=== PATIENT | male | born 1940 | race Caucasian/White ===

== ENCOUNTER → 2016-09-14 | Outpatient (CLI) | payer MEDICARE, OTHER, MEDICAID ==
[~2016-09-14] MED LIST: /WARF5TA PO; ALBU83IN INH; CARV25TA PO; COLACE PO; CORE25TA OR; DEPA500T PO; DIGO0.257 PO; FAMO40TA2 PO; FURO80TA2 PO; GEMF600T PO; GLIP5TAB2 PO; GLUC1000 PO; HCTZ PO; LIPI20TA PO; LISI10TA4 PO; NITR0.4S SL; PAXI40TA PO; SPIRONOLACTONE PO; TACLOIN4 TOP; VICO5TAB PO; VITAMIN D50000 UNT PO
--- NOTE | 2016-09-14 12:37 | REP ---
CHEST, TWO VIEWS: HISTORY: COPD. COMPARISON: 08/31/2011 An increase in interstitial markings is present in the mid and lower lungs. The cardiac silhouette is enlarged. The pulmonary vasculature is prominent. Degenerative change is present in the thoracic spine. A cardiac pacemaker is present. IMPRESSION: The above findings are consistent with bilateral interstitial infiltrates or edema. Signed by Bo Castro MD 09/14/2016 12:47 P
[2016-09-14 15:25] LABS: MEAN CORPUSCULAR HEMOGLOBIN 29.9 pg (27.0-33.0); MEAN CORPUSCULAR HGB CONC 30.9 g/dl (32.0-36.5); MEAN CORPUSCULAR VOLUME 96.8 fl (80.0-96.0); RED CELL DISTRIBUTION WIDTH 18.6 % (11.5-14.5); WHITE BLOOD COUNT 8.5 K/mm3 (4.0-10.0)
[2016-09-14 15:28] LABS: INR 1.65
[2016-09-14 15:56] LABS: CALCIUM LEVEL 8.5 MG/DL (8.8-10.2); CREATININE FOR GFR 1.5 MG/DL (0.70-1.30); GLOMERULAR FILTRATION RATE 48.8 (>42); POTASSIUM SERUM 4.4 MEQ/L (3.5-5.1)
== END ==
LOC: M WUC 11:42
PROVIDERS: ATTEND Internal Medicine Cardiovascular Disease
DX: J44.1 Chronic obstructive pulmonary disease with (acute) exacerbation (principal); I50.9 Heart failure, unspecified; I10 Essential (primary) hypertension; I25.10 Atherosclerotic heart disease of native coronary artery without angina pectoris

== ENCOUNTER 2016-10-15 09:47 | Emergency (ER) | payer MEDICARE, OTHER, MEDICAID ==
[~2016-10-15] VITALS: Ht 177.8 cm; Wt 108.4 kg
[2016-10-15] MEDS ORDERED: SPIR25TA2 PO (10:03)
[2016-10-15] MEDS ORDERED: TORS20TA2 PO (10:03)
[2016-10-15] MEDS ORDERED: IRON50TA PO (10:03)
[2016-10-15] MEDS ORDERED: ENTR1TAB7 PO (10:03)
[2016-10-15] MEDS ORDERED: METF500T PO (10:03)
[2016-10-15] MEDS ORDERED: NOVO70VL SC (10:03)
[2016-10-15] MEDS ORDERED: VITA500C24 PO (10:03)
[2016-10-15] MEDS ORDERED: NORCO, ANEXSIA 5/325MG TABLET (HYDROcodone/ACETAMINOPHEN) PO ONE (10:30)
[2016-10-15 10:47] LABS: ADD MORPHOLOGY? YES; BASO % 0.3 % (0.0-1.0); EOS # 0.6 K/mm3 (0.0-0.50); EOS % 5.1 % (0.0-3.0); LARGE UNSTAINED CELL # 0.1 K/mm3 (0.0-0.4); LARGE UNSTAINED CELL % 1.1 % (0.0-4.0); LYMPH # 1.7 K/mm3 (1.5-4.5); LYMPH % 13.4 % (24.0-44.0); MEAN CORPUSCULAR HEMOGLOBIN 29.7 pg (27.0-33.0); MEAN CORPUSCULAR HGB CONC 29.5 g/dl (32.0-36.5); MEAN CORPUSCULAR VOLUME 100.8 fl (80.0-96.0); MONO % 8.4 % (0.0-5.0); NEUTROPHILS # 8.6 K/mm3 (1.8-7.7); NEUTROPHILS % 71.6 % (36.0-66.0); PLATELET COUNT, AUTOMATED 257 k/mm3 (150-450); RED CELL DISTRIBUTION WIDTH 22.6 % (11.5-14.5)
[2016-10-15 10:55] LABS: INR 2.1
[2016-10-15 11:12] LABS: ANION GAP 11 MEQ/L (8-16); BLOOD UREA NITROGEN 29 MG/DL (7-18); CALCIUM LEVEL 8.3 MG/DL (8.8-10.2); CARBON DIOXIDE LEVEL 25 MEQ/L (21-32); CHLORIDE LEVEL 106 MEQ/L (98-107); CREATININE FOR GFR 1.19 MG/DL (0.70-1.30); GLOMERULAR FILTRATION RATE > 60.0 (>42); GLUCOSE, FASTING 138 MG/DL (83-110); POTASSIUM SERUM 4.5 MEQ/L (3.5-5.1); SODIUM LEVEL 142 MEQ/L (136-145)
[2016-10-15 11:29] LABS: HYPOCHROMASIA 3+
[2016-10-15 11:30] LABS: ANISOCYTOSIS 3+
--- NOTE | 2016-10-15 11:30 | REP ---
Clinical: Pain centered at the first toe. Technique: AP, lateral, bilateral oblique views of the left foot. Findings: Age-related osteopenia and arthritic degenerative changes are appreciated including joint space narrowing and subtle spurring at the interphalangeal joints. Moderate soft tissue swelling surrounding the first metatarsophalangeal joint and subtle subchondral areas of osteopenia suggest the possibility of inflammatory arthritides. No acute fracture dislocation. Impression: 1. Osteoarthritic degenerative changes. 2. Swelling and subtle changes involving the first metatarsophalangeal joint suggesting associated inflammatory arthritic disease. Signed by Alfredo Kong MD 10/15/2016 11:21 A
[2016-10-15 11:34] LABS: POIKILOCYTOSIS 1+
[2016-10-15] MEDS ORDERED: CLEO300C2 PO (11:40)
[2016-10-15] MEDS ORDERED: NORCOTAB PO (11:41)
[2016-10-15 11:47] VITALS: BP 109/57
--- NOTE | 2016-10-18 12:36 | REP ---
Left shoulder three views: There is no fracture or dislocation. Glenohumeral osteoarthritis. There is minimal widening of the acromioclavicular joint, degenerative versus post-traumatic). There are no calcifications or foreign bodies. The pacemaker is superimposed. Emergency stat interpretation was given by my colleague, Dr. Castro, upon completion of the study on 10/15/2016, 11:05 a.m. Signed by Elvin Mcguire MD 10/18/2016 12:28 P
== END 2016-10-15 11:59 | disposition home or self-care (01) ==
LOC: M ED 11:58
DX: S40.012A Contusion of left shoulder, initial encounter (principal); W01.0XXA Fall on same level from slipping, tripping and stumbling without subsequent striking against object, initial encounter; Y92.009 Unspecified place in unspecified non-institutional (private) residence as the place of occurrence of the external cause; Y93.89 Activity, other specified; Y99.8 Other external cause status; M10.9 Gout, unspecified; E11.9 Type 2 diabetes mellitus without complications; I10 Essential (primary) hypertension; I25.10 Atherosclerotic heart disease of native coronary artery without angina pectoris; I50.9 Heart failure, unspecified; E78.9 Disorder of lipoprotein metabolism, unspecified; I48.91 Unspecified atrial fibrillation; F32.9 Major depressive disorder, single episode, unspecified; Z95.0 Presence of cardiac pacemaker; Z95.1 Presence of aortocoronary bypass graft; Z86.73 Personal history of transient ischemic attack (TIA), and cerebral infarction without residual deficits; Z79.899 Other long term (current) drug therapy; Z79.01 Long term (current) use of anticoagulants; Z79.84 Long term (current) use of oral hypoglycemic drugs; Z79.4 Long term (current) use of insulin

== ENCOUNTER 2016-10-25 10:54 | Inpatient (IN) | payer MEDICARE, OTHER, MEDICAID ==
[~2016-10-25] VITALS: Ht 177.8 cm; Wt 110.7 kg
[~2016-10-25 10:54] MED LIST changes: +CLEO300C2 PO; +ENTR1TAB7 PO; +IRON50TA PO; +METF500T PO; +NORCOTAB PO; +NOVO70VL SC; +SPIR25TA2 PO; +TORS20TA2 PO; +VITA500C24 PO
[2016-10-25 12:00] LABS: BASO % 0.8 % (0.0-1.0); EOS # 0.5 K/mm3 (0.0-0.50); EOS % 7.6 % (0.0-3.0); LARGE UNSTAINED CELL # 0.1 K/mm3 (0.0-0.4); LARGE UNSTAINED CELL % 1.3 % (0.0-4.0); LYMPH # 1.2 K/mm3 (1.5-4.5); LYMPH % 18.9 % (24.0-44.0); MEAN CORPUSCULAR HEMOGLOBIN 28.5 pg (27.0-33.0); MEAN CORPUSCULAR VOLUME 98.2 fl (80.0-96.0); MONO # 0.5 K/mm3 (0.0-0.8); MONO % 7.7 % (0.0-5.0); NEUTROPHILS # 3.9 K/mm3 (1.8-7.7); NEUTROPHILS % 63.7 % (36.0-66.0); PLATELET COUNT, AUTOMATED 295 k/mm3 (150-450); RED CELL DISTRIBUTION WIDTH 19.1 % (11.5-14.5); WHITE BLOOD COUNT 6.2 K/mm3 (4.0-10.0)
[2016-10-25 12:04] LABS: INR 2.62
[2016-10-25 12:26] LABS: ANION GAP 9 MEQ/L (8-16); BLOOD UREA NITROGEN 24 MG/DL (7-18); CALCIUM LEVEL 8.9 MG/DL (8.8-10.2); CARBON DIOXIDE LEVEL 29 MEQ/L (21-32); CHLORIDE LEVEL 104 MEQ/L (98-107); GLOMERULAR FILTRATION RATE > 60.0 (>42); GLUCOSE, FASTING 110 MG/DL (83-110); SODIUM LEVEL 142 MEQ/L (136-145)
--- NOTE | 2016-10-25 12:45 | REP ---
CHEST, TWO VIEWS: Two views of the chest are performed and compared to the prior study of 09/14/2016. There is no change since the prior exam. There is mild cardiomegaly. Bibasilar interstitial infiltrates are unchanged. There is some calcification of the thoracic aorta. Mediastinal silhouette is unchanged. Multiple sternal wires are present. Left pacemaker is again noted. There are degenerative changes of the spine. IMPRESSION: No change in cardiomegaly and bibasilar interstitial infiltrates. Signed by Elvin Milton MD 10/25/2016 04:43 P
--- NOTE | 2016-10-25 14:48 | ECGEPIP ---
Stationary ECG Study [facility] - ED Test Date: 2016-10-25 Pat Name: LUCIA CORONA Department: Room: - Gender: M Kettleman: teodora : 1940 Requested By: Ana Martinez Order Number: [id number] Reading MD: Grant Garcia Measurements Intervals Ethel Rate: 65 P: -74 RI: 165 QRS: -73 QRSD: 168 T: 107 QT: 491 QTc: 514 Interpretive Statements ELECTRONIC ATRIAL PACEMAKER ELECTRONIC VENTRICULAR PACEMAKER ABNORMAL RHYTHM ECG NO PRIORS 09/02/11 Electronically Signed On 10-25-2016 14:48:19 EDT by Grant Garcia
[2016-10-25] MEDS ORDERED: ACETAMINOPHEN TAB 650MG DOSE (2X325MG) PO PRN (15:00)
[2016-10-25] MEDS ORDERED: ONDANSETRON 4MG/2ML VIAL (J2405) IV PRN (15:00)
[2016-10-25 15:36] LABS: FERRITIN 50 NG/ML (26-388); TOTAL IRON BINDING CAPACITY 395 UG/DL (250-450)
[2016-10-25] MEDS ORDERED: FERR83TA2 PO (15:37)
[2016-10-25] MEDS ORDERED: DIVA500T3 PO (15:37)
[2016-10-25] MEDS ORDERED: CARV6.25 PO (15:37)
[2016-10-25] MEDS ORDERED: TORS20TA2 PO (15:37)
[2016-10-25] MEDS ORDERED: NOVO70VL SC (15:37)
[2016-10-25] MEDS ORDERED: WARF-22 PO (15:37)
[2016-10-25] MEDS ORDERED: PARO40TA2 PO (15:37)
[2016-10-25] MEDS ORDERED: METF-414 PO (15:37)
[2016-10-25] MEDS ORDERED: ENTR1TAB7 PO (15:37)
[2016-10-25] MEDS ORDERED: VITA500T88 PO (15:37)
[2016-10-25] MEDS ORDERED: NITR4TASL SL (15:37)
[2016-10-25] MEDS ORDERED: HYDR-3716 PO (15:37)
[2016-10-25] MEDS ORDERED: LIPI20TA PO (15:37)
[2016-10-25] MEDS ORDERED: WARF-23 PO (15:37)
[2016-10-25] MEDS ORDERED: SPIR25TA2 PO (15:37)
[2016-10-25] MEDS ORDERED: ZYLO300T4 PO (15:38)
[2016-10-25 15:39] LABS: RETIC HEMOGLOBIN CONTENT CHr 29.8 PG (24-36); RETICULOCYTE ABSOLUTE ADVIA212 109 x10(9)/L (17-77)
[2016-10-25 15:39] LABS: REASON FOR REVIEW COMPREHENSIVE REVIEW
[2016-10-25] MEDS ORDERED: GABA-282 PO (15:39)
[2016-10-25] MEDS ORDERED: NEXI40CA PO (15:39)
[2016-10-25] MEDS ORDERED: BENZ100C5 PO (15:39)
[2016-10-25 16:21] LABS: PERCENT SATURATION 29.1 % (19.7-37.4)
[2016-10-25] MEDS ORDERED: NITROGLYCERIN 0.4 MG SUBL TABLET SL PRN (16:30)
[2016-10-25] MEDS ORDERED: GASTROGRAFIN SOLUTION 30ML (Q9963) PO ONE ×2 (16:35→17:05)
[2016-10-25] MEDS: NovoLOG MIX 70/30 PER UNIT SC SCH (17:30)
[2016-10-25] MEDS: SUCRALFATE 1 GM TAB PO SCH ×2 (17:39→21:00)
[2016-10-25 18:00] VITALS: BP 157/74
--- NOTE | 2016-10-25 18:18 | REP ---
Brain CT without contrast: History: History of a fall. Patient on Coumadin. No comparison brain CT. CT findings: Digital lateral job specification writer radiograph demonstrates no abnormality. Bone window settings demonstrate an intact bony calvarium. No skull fracture or significant scalp hematoma is appreciated. There is heavy vascular calcification in the distribution of the distal vertebral and distal carotid arteries bilaterally. On soft tissue window settings, there is diffuse mild to moderate cerebral atrophy. There is no evidence of intracranial hemorrhage. Milton-white differentiation pattern is normal above and below the tentorium. There is no evidence of mass, infarction, extra-axial fluid collection or midline shift. Impression: Diffuse atrophy, vascular calcification. No acute intracranial abnormality. Signed by Mervin Valero MD 10/25/2016 07:37 P
--- NOTE | 2016-10-25 18:37 | REP ---
CT study of the abdomen and pelvis without IV or oral contrast: History: Abdominal distension. Anemia. History of abdominal aortic aneurysm. CT findings: Digital division traffic superintendent radiograph demonstrates pacemaker wires in the heart. Bowel gas pattern normal. Extensive vascular calcification is seen. There are clips in the left inguinal soft tissues. Axial CT images demonstrate evidence of COPD with peripheral pattern of the bilateral lower lobe interstitial fibrosis and honeycombing. No adrenal lesion is seen on either side. The liver and the spleen are normal in size and homogeneous in texture. Pancreas is unremarkable. There is some gravel like calcific material in the dependent portion of the neck of the gallbladder. Extensive vascular calcification is observed. No hydronephrosis is seen. There is an infrarenal abdominal aortic aneurysm measuring 3.4 cm in greatest anteroposterior dimension. No retroperitoneal mass or adenopathy is seen. Small and large intestinal bowel loops are normal in the upper abdomen. Pelvic images demonstrate a disc shaped metallic object in the right lower quadrant of the abdomen adjacent to or within the tip of the cecum. This is seen on division traffic superintendent image. It measures 2.1 cm in greatest diameter. There is spray artifact emanating from this. A normal short appendix appears to course just caudal to this density. There is an umbilical hernia transmitting a small amount of abdominal fat. No other abdominal wall defect is seen. There are dystrophic calcifications in the prostate. Urinary bladder is unremarkable. Left colonic diverticulosis is seen without CT evidence of diverticulitis. No bony destructive lesion is appreciated. There are degenerative changes in the lumbosacral spine. Impression: 1. Tiny gravel like calculi suspected in the gallbladder neck. 2. Infrarenal 3.4 cm abdominal aortic aneurysm. 3. Metallic density in or adjacent to the tip of the cecum. This may reflect a metallic ingested object. 2.1 cm in greatest diameter. This is not visible on CT images from July 2010.3. A small umbilical hernia transmitting abdominal fat. 4. Vascular calcification. 5. Left colonic diverticulosis. No CT evidence of diverticulitis. Signed by Mervin Valero MD 10/25/2016 07:38 P
--- NOTE | 2016-10-25 18:52 | HPEPDOC ---
General Date of Admission Oct 25, 2016 at 14:47 Primary Care Physician: RONIT HUSTON DO Attending Physician: KAMERON ALEJANDRE MD Chief Complaint The patient is a 75-year-old male admitted with a reason for visit of Symptomatic Anemia. Source: Patient, Family Exam Limitations: No limitations Timing/Duration: Getting worse Severity: Moderate History of Present Illness Mr. Jean presents to the emergency department today because it was recommended by his PCP and Dr. Parikh. Apparently he had a drop in hemoglobin from 12.2 on 09/14/2016 28.4 on 10/15/2016, and he had been feeling significantly more fatigued, and he has fallen a few times in the past few weeks , he had a doctor's visit today where he discussed his lab results, and at that time he was sent in for further evaluation. His hemoglobin in the ED today is 9.1, therefore it appears that his bleeding has stabilized at this time. Other than increased fatigue, he has no additional acute complaints. He does have some sense of abdominal distention which she attributes to bloating and gas , he has had a few pounds of weight loss over the past few week which she attributes to poor oral intake. He has had a few chills as well. He does admit to having a cough, but this is chronic in nature and unchanged. He does take iron supplements, therefore his stools are chronically black and tarry, but specifically he denies seeing any bright red blood in the toilet bowl, on the surface of the stool, or mixed in. As regarding his falls, he states that he has fallen twice in the past week, he did hit his head one of those times. He states that he will feel a pain go up the back of the legs and into his back, and then he will fall. He does not have enough time to be able to sit down. Otherwise, he denies any prodromal symptoms such as lightheadedness. Home Medications Scheduled Allopurinol (Zyloprim) 300 Mg Tab 300 MG PO DAILY (Reported) Ascorbic Acid (Vitamin C) 500 Mg Tab 500 MG PO DAILY (Reported) Atorvastatin Calcium (Lipitor) 20 Mg Tab 20 MG PO QHS (Reported) Benzonatate (Benzonatate) 100 Mg Cap 100 MG PO BID (Reported) Carvedilol (Carvedilol) 6.25 Mg Tab 6.25 MG PO BID (Reported) Divalproex Sodium (Divalproex Sodium Dr) 500 Mg Tab 500 MG PO BID (Reported) Esomeprazole Magnesium Trihydr (Nexium) 40 Mg Cap 40 MG PO DAILY (Reported) Ferrous Sulfate (Ferrous Sulfate) 27 Mg Tab 54 MG PO DAILY (Reported) Gabapentin (Gabapentin) 300 Mg Cap 900 MG PO BID (Reported) Insulin Aspart Protamine/Aspar (Novolog Mix 70/30 (70-30) 100 Unit/ml) 1 Units/ 0.01 Ml Susp 42 UNITS SC BID (Reported) Metformin Hydrochloride (Metformin HCl ER) 500 Mg Tab 1,000 MG PO BID (Reported ) Paroxetine (Paroxetine HCl) 40 Mg Tab 40 MG PO DAILY (Reported) Sacubitril/Valsartan (Entresto 49-51 mg) 1 Tab Tab 1 TAB PO BID (Reported) Spironolactone (Spironolactone) 25 Mg Tab 25 MG PO QHS (Reported) Torsemide (Torsemide) 20 Mg Tab 40 MG PO DAILY (Reported) Warfarin Sod (Warfarin Sodium) 5 Mg Tab 5 MG PO 3XW (Reported) QPM: MON, WED, FRI Warfarin Sod (Warfarin Sodium) 10 Mg Tab 10 MG PO 4XWK (Reported) QPM: SUN, TUES, THURS, SAT Scheduled PRN Acetaminophen/Hydrocodone (Hydrocodone/Acetaminophen 7.5-325 mg) 1 Tab Tab 1 TAB PO QID PRN PRN PAIN (Reported) Nitroglycerin (Nitrostat) 0.4 Mg Subl 0.4 MG SL PRN PRN PRN CHEST PAIN (Reported ) Allergies Coded Allergies: No Known Allergies (Verified Allergy, 08/31/11) Past Medical History Medical History Ischemic cardiomyopathy, dyslipidemia, hypertension, type 2 diabetes, COPD, peripheral vascular disease, paroxysmal atrial fibrillation, hx of bladder cancer, s/p ICD placement 10/2009, s/p CABG x4, s/p popliteal-femoral bypass, gout, cellulitis Surgical History bilateral cataract removal, carotid endartectomy, popliteal-femoral bypass, ICD placement 10/25, tonsillectomy Family History Significant Family History: Diabetes, Hypertension Social History * Smoker: former Smoker (Quit 10 years ago, 60 pack years ) Alcohol: other (Used to binge drink in the past, currently denies alcohol use ) Former member of a band Review of Symptoms Constitutional: Reports: Chills, Night Sweats, Weight Loss (7 lbs over a week) , Denies: Fever Eyes: Denies: Vision change ENT: Reports: Head Aches Pulmonary: Reports: Cough, Denies: Pleuritic Chest Pain Cardiovascular: Reports: Edema (Bilateral lower extremity edema ), Orthopnea, Denies: Chest Pain Gastrointestinal: Reports: Melena, Denies: Abdominal Pain, Constipation, Diarrhea, Nausea, Vomiting Genitourinary: Denies: Hematuria Musculoskeletal: Reports: Foot Pain (Peripheral neuropathy in feet ) Neurological: Reports: Incoordination, Weakness (Takes a couple minutes to recover after falls ) Psych: Reports: Mood Normal Physical Examination General Exam: Positive: Alert, Cooperative, No Acute Distress Eye Exam: Positive: EOMI Chest Exam: Positive: Diminished, Wheezing Heart Exam: Positive: Normal S1, Normal S2, Rate Normal, Regular Rhythm, Negative: Gallops, Murmurs, Rubs Abdomen Exam: Positive: BS Hyperactive, Hernia (Umbilical hernia) Extremity Exam: Positive: Edema Neuro Exam: Positive: Normal Speech Psych Exam: Positive: Mental status NL, Mood NL Other physical findings Percussion to abdomen was tympanic, +1 edema in lower extremity bilaterally, distended and non-tender abdomen Vital Signs Vital Signs Date Time Temp Pulse Resp B/P Pulse Ox O2 Delivery O2 Flow Rate FiO2 10/25/16 16:26 62 96 10/25/16 16:24 146/74 10/25/16 11:35 Room Air 10/25/16 10:56 96.9 18 2 Laboratory Data Labs 24H Laboratory Tests 2 10/25/16 11:45: Absolute Reticulocyte Count 109H, Anion Gap 9, B-Type Natriuretic Peptide 383H, White Blood Count 6.2, Red Blood Count 3.21L, Hemoglobin 9.1L, Hematocrit 31.5L , Mean Corpuscular Volume 98.2H, Mean Corpuscular Hemoglobin 28.5, Mean Corpuscular Hemoglobin Concent 29.0L, Red Cell Distribution Width 19.1H, Platelet Count 295, Neutrophils (%) (Auto) 63.7, Lymphocytes (%) (Auto) 18.9L, Monocytes (%) (Auto) 7.7H, Eosinophils (%) (Auto) 7.6H, Basophils (%) (Auto) 0.8 , Neutrophils # (Auto) 3.9, Lymphocytes # (Auto) 1.2L, Monocytes # (Auto) 0.5, Eosinophils # (Auto) 0.5, Basophils # (Auto) 0.0, Blood Urea Nitrogen 24H, Creatinine 1.10, Sodium Level 142, Potassium Level 4.0, Chloride Level 104, Carbon Dioxide Level 29, Calcium Level 8.9, Total Creatine Kinase 29L, Creatine Kinase MB 1.8, Creatine Kinase MB Relative Index 6.20H, Ferritin 50, Glomerular Filtration Rate > 60.0, Iron Level 115, Large Unclassified Cells # 0.1, Large Unclassified Cells % 1.3, Percent Reticulocyte Count 3.50H, Prothromb Time International Ratio 2.62, Prothrombin Time 28.1H, Reticulocyte Hgb Content (CHr ) 29.8, Total Iron Binding Capacity 395, Transferrin % Saturation 29.1, Troponin I < 0.02, Valproic Acid (Depakene) Level 56.4 10/25/16 14:56: Differential Pathologist's Review COMPREHENSIVE REVIEW, Differential Slide Review Report, Peripheral Blood Smear Path Consult PERIPHERAL SMEAR CBC/BMP Laboratory Tests 10/25/16 11:45 Calcium Level 8.9, Total Creatine Kinase 29 L, Red Blood Count 3.21 L, Mean Corpuscular Volume 98.2 H, Mean Corpuscular Hemoglobin 28.5, Mean Corpuscular Hemoglobin Concent 29.0 L, Red Cell Distribution Width 19.1 H, Neutrophils (%) ( Auto) 63.7, Lymphocytes (%) (Auto) 18.9 L, Monocytes (%) (Auto) 7.7 H, Eosinophils (%) (Auto) 7.6 H, Basophils (%) (Auto) 0.8, Neutrophils # (Auto) 3.9 , Lymphocytes # (Auto) 1.2 L, Monocytes # (Auto) 0.5, Eosinophils # (Auto) 0.5, Basophils # (Auto) 0.0 Microbiology Microbiology 10/25/16 MRSA Screen, Resulted Pending 10/25/16 Influenza Virus Type A Antigen - Final, Resulted 10/25/16 Influenza Virus Type B Antigen - Final, Resulted 10/25/16 Respiratory Virus Panel (PCR) (ISAAC), Resulted Pending Problems (1) Symptomatic anemia Status: Acute Response to Treatment: Stable Discussed With: Patient Problem Text: Differential diagnosis includes: Anemia of chronic disease, peptic ulcer disease, chronic bleed from neoplastic source, AVM, dilated AAA, malnutrition, liver disease and portal congestion with gastropathy, myelodysplastic disorders. Patient has a history of black tarry stools due to iron supplementation, but a positive fecal occult blood test. Will monitor stools, H/H, and check CT abdomen and pelvis, vitamin B12 and folate, LFTs. May consider peripheral smear if initial investigations do not show clear etiology. We'll start the patient on Protonix IV twice a day, Carafate. As the patient has not had any abdominal pain, and has been tolerating oral intake, we will allow him to have a diet at this time, but we will continue to monitor him for bleeding. We will hold his Coumadin at this time. (2) Multiple falls Status: Acute Problem Text: Will check CT of head to rule out hemorrhage, stroke, possible cerebellar infarct, or other intracranial etiology for his falls and given the fact that he does mention that he has hit his head. He does not , however, have any focal neurological findings on exam. EKG shows sinus rhythm in the ED. We will cycle his troponins (3) COPD (chronic obstructive pulmonary disease) Status: Chronic Problem Text: Continue with home regimen of inhaled corticosteroids, and albuterol as necessary (4) Dyspnea Status: Acute Problem Text: Likely due to anemia. We will also check a respiratory panel. Supplement with oxygen as needed for hypoxia (5) Atrial fibrillation Status: Chronic Problem Text: Chronically on Coumadin, however given his symptomatic anemia we will discontinue his Coumadin at this time. (6) Hypertension Status: Chronic (7) Diabetes type 2, controlled Status: Chronic Problem Text: Sliding scale insulin while inpatient (8) Hyperlipidemia Status: Chronic Problem Text: Continue statin therapy. (9) Peripheral arterial disease Status: Chronic Plan / VTE VTE Prophylaxis Ordered?: No VTE Exclusion Pharmacological: Bleeding Risk JENNIFFER DE LA CRUZ DO Oct 25, 2016 17:30
[2016-10-25 19:46] LABS: ALBUMIN 3.1 GM/DL (3.2-5.2); ALBUMIN/GLOBULIN RATIO 0.76 (1.00-1.93); ALKALINE PHOSPHATASE 82 U/L (45-117); ALT/SGPT 11 U/L (12-78); ANION GAP 9 MEQ/L (8-16); AST/SGOT 11 U/L (15-37); BILIRUBIN,TOTAL 0.5 MG/DL (0.2-1.0); BLOOD UREA NITROGEN 25 MG/DL (7-18); CALCIUM LEVEL 8.4 MG/DL (8.8-10.2); CARBON DIOXIDE LEVEL 29 MEQ/L (21-32); CHLORIDE LEVEL 104 MEQ/L (98-107); CREATININE FOR GFR 0.97 MG/DL (0.70-1.30); GLOMERULAR FILTRATION RATE > 60.0 (>42); GLUCOSE, FASTING 113 MG/DL (83-110); POTASSIUM SERUM 4.4 MEQ/L (3.5-5.1); SODIUM LEVEL 142 MEQ/L (136-145); TOTAL PROTEIN 7.2 GM/DL (6.4-8.2)
[2016-10-25 20:16] LABS: FOLATE 23.7 NG/ML (>5.4); VITAMIN B12 LEVEL 492 PG/ML (247-911)
[2016-10-25 21:00] VITALS: BP_SYST 119; BP_SYST 121; BP_SYST 126; BP_DIAS 56; BP_DIAS 59; BP_DIAS 60
[2016-10-25] MEDS: GABAPENTIN 300 MG CAP PO SCH (21:00)
[2016-10-25] MEDS: PANTOPRAZOLE 40MG INJ (PROTONIX) (C9113) IV SCH (21:00)
[2016-10-25] MEDS: ATORVASTATIN 20 MG TAB PO SCH (21:00)
[2016-10-25] MEDS: CARVedilol 6.25 MG TAB PO SCH (21:00)
[2016-10-25] MEDS: DIVALPROEX 500 MG TAB PO SCH (21:00)
[2016-10-25 21:55] VITALS: BP 134/62
[2016-10-25] MEDS: BENZONATATE 100 MG CAP PO SCH (23:31)
[2016-10-25] MEDS: SPIRONOLACTONE 25 MG TAB PO SCH (23:31)
[2016-10-26] VITALS (7 sets, daily range): BP systolic 129–171; BP diastolic 60–79
[2016-10-26 04:56] LABS: BASO % 0.6 % (0.0-1.0); EOS # 0.7 K/mm3 (0.0-0.50); EOS % 9.4 % (0.0-3.0); LARGE UNSTAINED CELL # 0.1 K/mm3 (0.0-0.4); LARGE UNSTAINED CELL % 1.5 % (0.0-4.0); LYMPH # 1.5 K/mm3 (1.5-4.5); LYMPH % 20.6 % (24.0-44.0); MEAN CORPUSCULAR HEMOGLOBIN 28.7 pg (27.0-33.0); MEAN CORPUSCULAR HGB CONC 29.4 g/dl (32.0-36.5); MEAN CORPUSCULAR VOLUME 97.5 fl (80.0-96.0); MONO # 0.6 K/mm3 (0.0-0.8); MONO % 8.1 % (0.0-5.0); NEUTROPHILS # 4.2 K/mm3 (1.8-7.7); NEUTROPHILS % 59.8 % (36.0-66.0); PLATELET COUNT, AUTOMATED 291 k/mm3 (150-450); RED CELL DISTRIBUTION WIDTH 19.4 % (11.5-14.5)
[2016-10-26 05:08] LABS: ANION GAP 8 MEQ/L (8-16); BLOOD UREA NITROGEN 22 MG/DL (7-18); CALCIUM LEVEL 8.3 MG/DL (8.8-10.2); CARBON DIOXIDE LEVEL 30 MEQ/L (21-32); CHLORIDE LEVEL 104 MEQ/L (98-107); GLOMERULAR FILTRATION RATE > 60.0 (>42); GLUCOSE, FASTING 109 MG/DL (83-110); POTASSIUM SERUM 3.8 MEQ/L (3.5-5.1); SODIUM LEVEL 142 MEQ/L (136-145)
[2016-10-26] MEDS: HumaLOG INSULIN (NovoLOG) PER UNIT SC SCH ×4 (07:30→20:38)
[2016-10-26] MEDS: NovoLOG MIX 70/30 PER UNIT SC SCH ×2 (07:30→17:30)
[2016-10-26] MEDS ORDERED: DEXTROSE 50% 50 ML SYRINGE IV PRN (07:45)
[2016-10-26] MEDS ORDERED: GLUCOSE 4 GM CHEW TABLET PO PRN (07:45)
[2016-10-26] MEDS ORDERED: GLUCAGON FOR INJ 1 MG VIAL (J1610) SC PRN (07:45)
[2016-10-26] MEDS: GABAPENTIN 300 MG CAP PO SCH ×2 (08:00→20:45)
[2016-10-26] MEDS: SUCRALFATE 1 GM TAB PO SCH ×4 (08:00→20:47)
[2016-10-26] MEDS: DIVALPROEX 500 MG TAB PO SCH ×2 (08:01→20:46)
[2016-10-26] MEDS: ALLOPURINOL 300 MG TAB PO SCH (08:01)
[2016-10-26] MEDS: PARoxetine 20 MG TAB PO SCH (08:01)
[2016-10-26] MEDS: PANTOPRAZOLE 40MG INJ (PROTONIX) (C9113) IV SCH ×2 (08:02→20:47)
[2016-10-26] MEDS: TORSEMIDE 20 MG TAB PO SCH (08:25)
[2016-10-26 08:35] LABS: INR 2.61
[2016-10-26] MEDS ORDERED: MAGNESIUM CITRATE 300 ML BTL PO ONE (08:45)
[2016-10-26] MEDS: CARVedilol 6.25 MG TAB PO SCH ×2 (09:00→20:46)
[2016-10-26] MEDS ORDERED: PANTOPRAZOLE 40MG TAB (PROTONIX) PO SCH (09:00)
--- NOTE | 2016-10-26 10:52 | REP ---
ABDOMINAL SERIES: Three views. HISTORY: Abdominal distension. Anemia. Foreign objects. FINDINGS: Upright chest radiograph is compared with a prior chest x-ray from October 25, 2016. A multilead pacemaker is seen in the right heart. Mild cardiomegaly is observed. Prior median sternotomy sutures are seen. There are clips in the soft tissues of the neck on the left side. EKG electrodes are seen. Interstitial markings are prominent in the bases, right more so than left unchanged from the previous day's radiograph. A right base infiltrate is suspected. No free subdiaphragmatic air is seen. Supine erect views of the abdomen show advanced vascular calcification. Some CT contrast is visible in the colon. A disc shaped metallic object observed in the right lower quadrant on yesterday's CT study is again seen. This measures 2.6 cm in diameter. There are clips in the inguinal soft tissues on the left. The bowel gas pattern is otherwise normal. There are degenerative changes in the thoracic spine. IMPRESSION: Disc shaped metallic density again noted in the right lower quadrant. Bowel gas pattern otherwise unremarkable. Prominent vascular calcification. Chest x-ray unchanged. Signed by Mervin Valero MD 10/26/2016 02:54 P
--- NOTE | 2016-10-26 11:37 | IPNPDOC ---
Subjective Date Seen The patient was seen on 10/26/16. Subjective Chief Complaint/HPI The patient is a 75-year-old male admitted with a reason for visit of Symptomatic Anemia. Events since last encounter The patient had no complaints this morning and felt like he was doing well. He slept well through the night. He still has a nonproductive cough and feels weak but denied any abdominal or chest pain, diarrhea, constipation, ear pain, sore throat, fever, chills or night sweats. General: Reports: Chills, Fatigue, Night Sweats Constitutional: Reports: Chills Eyes: Denies: Pain, Vision change ENT: Denies: Dysphagia, Ear Pain, Head Aches Skin: Denies: Lesions, Rash Pulmonary: Reports: Cough, Dyspnea Cardiovascular: Denies: Chest Pain, Orthopnea, Palpitations Gastrointestinal: Denies: Abdominal Pain, Constipation, Diarrhea, Nausea, Vomiting Genitourinary: Denies: Dysuria, Frequency, Incontinence Hematologic: Denies: Bleeding Excessively, Bruising Musculoskeletal: Denies: Back Pain, Neck Pain Neurological: Denies: Numbness, Weakness Psych: Reports: Mood Normal Objective Physical Examination General Exam: Positive: Alert, Cooperative, No Acute Distress Eye Exam: Positive: Conjunctiva & lids normal, EOMI, PERRLA ENT Exam: Positive: Atraumatic, Mucous membr. moist/pink, Pharynx Normal Chest Exam: Positive: Clear to auscultation, Diminished, Normal air movement, Wheezing Heart Exam: Positive: Normal S1, Normal S2, Rate Normal, Regular Rhythm, Negative: Gallops, Murmurs, Rubs Abdomen Exam: Positive: Hernia (Umbilical hernia), Normal bowel sounds, Soft Neuro Exam: Positive: Normal Speech Psych Exam: Positive: Mental status NL, Mood NL Assessment /Plan Assessment Jairo Jean is a 75 y/o male being seen for symptomatic anemia. 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 Stools was positive for blood, continue to monitor H/H. Vitamin B12, folate and LFTs unremarkable. Continue Protonix IV twice a day, Carafate. Appears stable at this time, will transfer to the floor (2) Multiple falls Status: Acute Problem Text: CT of head reveals diffuse atrophy, vascular calcification and no acute intracranial abnormalities. No hx of syncope. (3) Foreign body Status: Acute Problem Text: Noted on Ct, will repeat KUB and administer laxatives to determine if this is moving through the bowel (4) COPD (chronic obstructive pulmonary disease) Status: Chronic Problem Text: Continue with home regimen of inhaled corticosteroids, and albuterol as necessary (5) Dyspnea Status: Acute Problem Text: Likely due to anemia. Negative respiratory panel. Supplement with oxygen as needed for hypoxia, chronically on 2L home O2, he is currently at his baseline. (6) Atrial fibrillation Status: Chronic Problem Text: Chronically on Coumadin, however given his symptomatic anemia we will discontinue his Coumadin at this time. (7) Hypertension Status: Chronic (8) Diabetes type 2, controlled Status: Chronic Problem Text: Sliding scale insulin while inpatient (9) Hyperlipidemia Status: Chronic Problem Text: Continue statin therapy. (10) Peripheral arterial disease Status: Chronic Plan/VTE VTE Prophylaxis Ordered?: No VTE Exclusion Pharmacological: Bleeding Risk Disposition Attending Note: I have independently examined this patient and all aspects of the exam and treatment decisions have been discussed with the resident. A member of the hospitalist staff will continue to follow this patient through discharge. VS, I&O, 24H, Fishbone Vital Signs/I&O Vital Signs Date Time Temp Pulse Resp B/P Pulse Ox O2 Delivery O2 Flow Rate FiO2 10/26/16 08:00 Nasal Cannula 2.0 10/26/16 08:00 83 129/60 65 144/67 63 171/79 10/26/16 06:00 18 92 10/26/16 04:00 97.2 I&O- Last 24 Hours up to 6 AM 10/26/16 06:00 Intake Total 410 ml Output Total 525 ml Balance -115 ml Laboratory Data 24H LABS Laboratory Tests 2 10/25/16 11:45: Absolute Reticulocyte Count 109H, Anion Gap 9, B-Type Natriuretic Peptide 383H, White Blood Count 6.2, Red Blood Count 3.21L, Hemoglobin 9.1L, Hematocrit 31.5L , Mean Corpuscular Volume 98.2H, Mean Corpuscular Hemoglobin 28.5, Mean Corpuscular Hemoglobin Concent 29.0L, Red Cell Distribution Width 19.1H, Platelet Count 295, Neutrophils (%) (Auto) 63.7, Lymphocytes (%) (Auto) 18.9L, Monocytes (%) (Auto) 7.7H, Eosinophils (%) (Auto) 7.6H, Basophils (%) (Auto) 0.8 , Neutrophils # (Auto) 3.9, Lymphocytes # (Auto) 1.2L, Monocytes # (Auto) 0.5, Eosinophils # (Auto) 0.5, Basophils # (Auto) 0.0, Blood Urea Nitrogen 24H, Creatinine 1.10, Sodium Level 142, Potassium Level 4.0, Chloride Level 104, Carbon Dioxide Level 29, Calcium Level 8.9, Total Creatine Kinase 29L, Creatine Kinase MB 1.8, Creatine Kinase MB Relative Index 6.20H, Ferritin 50, Glomerular Filtration Rate > 60.0, Iron Level 115, Large Unclassified Cells # 0.1, Large Unclassified Cells % 1.3, Percent Reticulocyte Count 3.50H, Prothromb Time International Ratio 2.62, Prothrombin Time 28.1H, Reticulocyte Hgb Content (CHr ) 29.8, Total Iron Binding Capacity 395, Transferrin % Saturation 29.1, Troponin I < 0.02, Valproic Acid (Depakene) Level 56.4 10/25/16 14:56: Differential Pathologist's Review COMPREHENSIVE REVIEW, Differential Slide Review Report, Peripheral Blood Smear Path Consult PERIPHERAL SMEAR 10/25/16 17:28: Bedside Glucose (Misc Panel) 77L 10/25/16 17:52: Total Creatine Kinase 33L, Creatine Kinase MB 1.5, Creatine Kinase MB Relative Index 4.54H, Troponin I 0.02 10/25/16 19:03: Blood Urea Nitrogen 25H, Creatinine 0.97, Sodium Level 142, Potassium Level 4.4 , Chloride Level 104, Carbon Dioxide Level 29, Calcium Level 8.4L, Aspartate Amino Transf (AST/SGOT) 11L, Alanine Aminotransferase (ALT/SGPT) 11L, Alkaline Phosphatase 82, Total Bilirubin 0.5, Total Protein 7.2, Albumin 3.1L, Albumin/ Globulin Ratio 0.76L, Anion Gap 9, Folate 23.7, Glomerular Filtration Rate > 60.0, Vitamin B12 Level 492 10/26/16 00:12: Creatine Kinase MB 1.3, Creatine Kinase MB Relative Index 3.09, Total Creatine Kinase 42, Troponin I 0.02 10/26/16 01:25: Urine Amorphous Sediment , Urine Appearance CLEAR, Urine Color YELLOW, Urine pH 6.0, Urine Specific [place] 1.015, Urine Protein 1+H, Urine Glucose (UA) NEGATIVE, Urine Ketones NEGATIVE, Urine Urobilinogen 4.0H, Urine Bilirubin NEGATIVE, Urine Leukocyte Esterase TRACEH, Urine Bacteria (Auto) NEGATIVE, Urine Blood NEGATIVE, Urine Calcium Carbonate Cryst(Auto) , Urine Calcium Oxalate Cryst (Auto) , Urine Calcium Phosphate [place] (Auto) , Urine Cellular Casts , Urine Cystine Crystals , Urine Granular Casts (Auto) , Urine Hyaline Casts (Auto) 3, Urine Leucine Crystals , Urine Mucus (Auto) , Urine Nitrite NEGATIVE, Urine Oval Fat Bodies (Auto) , Urine RBC (Auto) 5H, Urine Renal Epithelial Cells , Urine Sperm (Auto) , Urine Squamous Epithelial Cells 0, Urine Transitional Epithelial Cells , Urine Trichomonas (Auto) , Urine Triple Phosphate Cryst (Auto) , Urine Tyrosine Crystals , Urine Uric Acid Crystals ( Auto) , Urine WBC (Auto) 5H, Urine Waxy Casts (Auto) , Urine Yeast-Like Cells ( Auto) 10/26/16 04:24: Blood Urea Nitrogen 22H, Creatinine 0.90, Sodium Level 142, Potassium Level 3.8 , Chloride Level 104, Carbon Dioxide Level 30, Calcium Level 8.3L, Anion Gap 8, Glomerular Filtration Rate > 60.0, Creatine Kinase MB 1.2, Creatine Kinase MB Relative Index 3.63, Total Creatine Kinase 33L, Troponin I < 0.02, White Blood Count 7.0, Red Blood Count 3.20L, Hemoglobin 9.2L, Hematocrit 31.2L, Mean Corpuscular Volume 97.5H, Mean Corpuscular Hemoglobin 28.7, Mean Corpuscular Hemoglobin Concent 29.4L, Red Cell Distribution Width 19.4H, Platelet Count 291 , Neutrophils (%) (Auto) 59.8, Lymphocytes (%) (Auto) 20.6L, Monocytes (%) (Auto ) 8.1H, Eosinophils (%) (Auto) 9.4H, Basophils (%) (Auto) 0.6, Neutrophils # ( Auto) 4.2, Lymphocytes # (Auto) 1.5, Monocytes # (Auto) 0.6, Eosinophils # (Auto ) 0.7H, Basophils # (Auto) 0.0, Large Unclassified Cells # 0.1, Large Unclassified Cells % 1.5, Thyroid Stimulating Hormone (TSH) 2.070 10/26/16 08:20: Prothromb Time International Ratio 2.61, Prothrombin Time 28.0H CBC/BMP Laboratory Tests 10/25/16 11:45 Calcium Level 8.9, Total Creatine Kinase 29 L, Red Blood Count 3.21 L, Mean Corpuscular Volume 98.2 H, Mean Corpuscular Hemoglobin 28.5, Mean Corpuscular Hemoglobin Concent 29.0 L, Red Cell Distribution Width 19.1 H, Neutrophils (%) ( Auto) 63.7, Lymphocytes (%) (Auto) 18.9 L, Monocytes (%) (Auto) 7.7 H, Eosinophils (%) (Auto) 7.6 H, Basophils (%) (Auto) 0.8, Neutrophils # (Auto) 3.9 , Lymphocytes # (Auto) 1.2 L, Monocytes # (Auto) 0.5, Eosinophils # (Auto) 0.5, Basophils # (Auto) 0.0 10/25/16 19:03 Calcium Level 8.4 L, Aspartate Amino Transf (AST/SGOT) 11 L, Alanine Aminotransferase (ALT/SGPT) 11 L, Alkaline Phosphatase 82, Total Bilirubin 0.5, Total Protein 7.2, Albumin 3.1 L 10/26/16 00:12 10/26/16 04:24 Calcium Level 8.3 L, Total Creatine Kinase 33 L, Red Blood Count 3.20 L, Mean Corpuscular Volume 97.5 H, Mean Corpuscular Hemoglobin 28.7, Mean Corpuscular Hemoglobin Concent 29.4 L, Red Cell Distribution Width 19.4 H, Neutrophils (%) ( Auto) 59.8, Lymphocytes (%) (Auto) 20.6 L, Monocytes (%) (Auto) 8.1 H, Eosinophils (%) (Auto) 9.4 H, Basophils (%) (Auto) 0.6, Neutrophils # (Auto) 4.2 , Lymphocytes # (Auto) 1.5, Monocytes # (Auto) 0.6, Eosinophils # (Auto) 0.7 H, Basophils # (Auto) 0.0 Microbiology Microbiology 10/25/16 MRSA Screen, Resulted Pending 4/10/17 Influenza Virus Type A Antigen - Final, Resulted 10/25/16 Influenza Virus Type B Antigen - Final, Resulted 10/25/16 Respiratory Virus Panel (PCR) ([facility]) - Final, Resulted 10/26/16 Urine Culture, Received Pending JENNIFFER DE LA CRUZ DO Oct 26, 2016 10:04 ANDREI MAK DO Oct 26, 2016 15:54
[2016-10-26] MEDS: BENZONATATE 100 MG CAP PO SCH ×2 (12:10→20:46)
[2016-10-26] MEDS: ANEXSIA, NORCO 7.5MG/325MG TABLET(HYDROCODONE/APAP) PO PRN (15:40)
[2016-10-26] MEDS: ATORVASTATIN 20 MG TAB PO SCH (20:47)
[2016-10-26] MEDS: SPIRONOLACTONE 25 MG TAB PO SCH (20:47)
[2016-10-27] MEDS: ANEXSIA, NORCO 7.5MG/325MG TABLET(HYDROCODONE/APAP) PO PRN ×3 (00:38→17:28)
[2016-10-27 06:00] VITALS: BP 136/64
[2016-10-27 06:22] LABS: ADD MORPHOLOGY? YES; BASO % 0.4 % (0.0-1.0); EOS # 0.5 K/mm3 (0.0-0.50); EOS % 8.5 % (0.0-3.0); LARGE UNSTAINED CELL # 0.1 K/mm3 (0.0-0.4); LARGE UNSTAINED CELL % 2.2 % (0.0-4.0); LYMPH # 1.4 K/mm3 (1.5-4.5); LYMPH % 22.5 % (24.0-44.0); MEAN CORPUSCULAR HEMOGLOBIN 28.6 pg (27.0-33.0); MEAN CORPUSCULAR HGB CONC 29.2 g/dl (32.0-36.5); MONO # 0.5 K/mm3 (0.0-0.8); MONO % 7.8 % (0.0-5.0); NEUTROPHILS # 3.6 K/mm3 (1.8-7.7); NEUTROPHILS % 58.6 % (36.0-66.0); PLATELET COUNT, AUTOMATED 279 k/mm3 (150-450); RED CELL DISTRIBUTION WIDTH 19.2 % (11.5-14.5); WHITE BLOOD COUNT 6.1 K/mm3 (4.0-10.0)
[2016-10-27 06:28] LABS: INR 1.89
[2016-10-27 06:33] LABS: ANION GAP 6 MEQ/L (8-16); BLOOD UREA NITROGEN 28 MG/DL (7-18); CALCIUM LEVEL 8.7 MG/DL (8.8-10.2); CARBON DIOXIDE LEVEL 32 MEQ/L (21-32); CHLORIDE LEVEL 103 MEQ/L (98-107); CREATININE FOR GFR 1.09 MG/DL (0.70-1.30); GLOMERULAR FILTRATION RATE > 60.0 (>42); GLUCOSE, FASTING 133 MG/DL (83-110); POTASSIUM SERUM 4.6 MEQ/L (3.5-5.1); SODIUM LEVEL 141 MEQ/L (136-145)
[2016-10-27 06:34] VITALS: BP_SYST 109; BP_SYST 120; BP_DIAS 53; BP_DIAS 57; BP_DIAS 58
[2016-10-27 06:50] LABS: ANISOCYTOSIS 2+; HYPOCHROMASIA 3+
[2016-10-27] MEDS: SUCRALFATE 1 GM TAB PO SCH ×4 (08:17→20:10)
[2016-10-27] MEDS: PANTOPRAZOLE 40MG INJ (PROTONIX) (C9113) IV SCH ×2 (08:17→20:10)
[2016-10-27] MEDS: ALLOPURINOL 300 MG TAB PO SCH (08:18)
[2016-10-27] MEDS: GABAPENTIN 300 MG CAP PO SCH ×2 (08:18→20:11)
[2016-10-27] MEDS: PARoxetine 20 MG TAB PO SCH (08:18)
[2016-10-27] MEDS: TORSEMIDE 20 MG TAB PO SCH (08:18)
[2016-10-27] MEDS: CARVedilol 6.25 MG TAB PO SCH ×2 (08:19→20:12)
[2016-10-27] MEDS: BENZONATATE 100 MG CAP PO SCH ×2 (08:19→20:10)
[2016-10-27] MEDS: HumaLOG INSULIN (NovoLOG) PER UNIT SC SCH ×4 (08:20→21:00)
[2016-10-27] MEDS: DIVALPROEX 500 MG TAB PO SCH ×2 (09:58→20:13)
[2016-10-27] MEDS ORDERED: MAGNESIUM CITRATE 300 ML BTL PO ONE (10:30)
--- NOTE | 2016-10-27 11:16 | REP ---
ABDOMEN SUPINE: 10/27/2016. Clinical history: Abdominal tenderness. Foreign object. Comparison: Abdominal series 10/26/2016. Findings: Three views of the abdomen in supine projection to encompass the entirety of that abdomen are provided. Sternotomy wires with wire fractures and pacemaker leads again noted over the heart. Heavily calcified aorta and splenic artery as before. Some basilar fibrotic changes in the chest. Degenerative changes throughout the thoracic and lumbar vertebral levels with bridging syndesmophytes and osteophytes. Iliac and femoral artery calcifications and clips about the left femoral artery region. There are two metallic disc shapes about 2.5 cm overlying the right iliac crest. They do not appear to have moved. They could be intra-abdominal or intracolonic in the region of the cecum and right colon. Impression: 1. No change in the appearance of the two circular metallic objects in the right lower quadrant adjacent to the lateral margin iliac crest and overlying the cecum/right colon. Bowel gas pattern unremarkable. No interval change. Signed by Gerardo Miranda MD 10/27/2016 03:30 P
--- NOTE | 2016-10-27 11:25 | IPNPDOC ---
Subjective Date Seen The patient was seen on 10/27/16. Subjective Chief Complaint/HPI The patient is a 75-year-old male admitted with a reason for visit of Symptomatic Anemia. Events since last encounter Patient feels great this morning and has no complaints. He slept well through the night and denies any pain or discomfort. He stated he had an episode of back pain yesterday which he monitors closely because it coincides with his legs feeling weak and subsequent falls, but he was given pain medication and his pain resolved. He stated he didn't know about the metallic object in his RLQ and has no idea how it got there. General: Reports: Normal Appetite, Denies: Chills, Fatigue, Malaise, Night Sweats Constitutional: Denies: Chills, Fever, Malaise, Night Sweats, Weakness Eyes: Denies: Pain, Vision change ENT: Denies: Dysphagia, Ear Pain, Head Aches Skin: Denies: Lesions, Rash Pulmonary: Denies: Cough, Dyspnea, Pleuritic Chest Pain Cardiovascular: Denies: Chest Pain, Orthopnea, Palpitations Gastrointestinal: Denies: Abdominal Pain, Constipation, Diarrhea, Nausea, Vomiting Genitourinary: Denies: Dysuria, Frequency, Incontinence Hematologic: Denies: Bruising Endocrine: Denies: Polydipsia, Polyphagia, Polyuria Musculoskeletal: Reports: Back Pain Psych: Reports: Mood Normal Objective Physical Examination General Exam: Positive: Alert, Cooperative, No Acute Distress Eye Exam: Positive: Conjunctiva & lids normal, EOMI, PERRLA Chest Exam: Positive: Clear to auscultation, Diminished, Normal air movement, Wheezing Heart Exam: Positive: Normal S1, Normal S2, Rate Normal, Regular Rhythm, Negative: Gallops, Murmurs, Rubs Abdomen Exam: Positive: Hernia (Umbilical hernia), Normal bowel sounds, Soft Neuro Exam: Positive: Normal Speech Psych Exam: Positive: Mental status NL, Mood NL Assessment /Plan Assessment Jairo Jean is a 75 y/o male being seen for symptomatic anemia. Problems (1) Symptomatic anemia Status: Acute Response to Treatment: Stable Discussed With: Patient Problem Text: Patient's abdomen x-ray still revealed a disc-shaped density in his right lower quadrant measuring 2.6cm, along with prominent vascular calcification. His chest x-ray was unchanged. His peripheral smear revealed worsening of anemia with increased reticulocytes consistent with occult blood loss along with a few atypical/reactive lymphocytes. His stool was negative for blood. (2) Multiple falls Status: Acute Problem Text: CT of head reveals diffuse atrophy, vascular calcification and no acute intracranial abnormalities. No hx of syncope. (3) Foreign body Status: Acute Problem Text: Noted on CT, abdomen x-ray revealed that the object is still in his RLQ. Will continue to monitor for movement through the bowels. (4) COPD (chronic obstructive pulmonary disease) Status: Chronic Problem Text: Continue with home regimen of inhaled corticosteroids, and albuterol as necessary (5) Dyspnea Status: Acute Problem Text: Likely due to anemia. Negative respiratory panel. Supplement with oxygen as needed for hypoxia, chronically on 2L home O2, he is currently at his baseline. (6) Atrial fibrillation Status: Chronic Problem Text: Chronically on Coumadin, however given his symptomatic anemia we will discontinue his Coumadin at this time. (7) Hypertension Status: Chronic (8) Diabetes type 2, controlled Status: Chronic Problem Text: Sliding scale insulin while inpatient (9) Hyperlipidemia Status: Chronic Problem Text: Continue statin therapy. (10) Peripheral arterial disease Status: Chronic Plan/VTE VTE Prophylaxis Ordered?: No VTE Exclusion Pharmacological: Bleeding Risk Disposition Attending note: patient seen independently and discussed the case in depth with the resident. I agree with the treatment plan as outlined above. VS, I&O, 24H, Fishbone Vital Signs/I&O Vital Signs Date Time Temp Pulse Resp B/P Pulse Ox O2 Delivery O2 Flow Rate FiO2 10/27/16 06:34 88 109/58 75 109/53 62 120/57 10/27/16 06:00 97.6 20 91 Nasal Cannula 2.0 I&O- Last 24 Hours up to 6 AM 10/27/16 06:00 Intake Total 780 ml Output Total 1600 ml Balance -820 ml Laboratory Data 24H LABS Laboratory Tests 2 10/26/16 08:20: Prothromb Time International Ratio 2.61, Prothrombin Time 28.0H 10/26/16 11:27: Bedside Glucose (Misc Panel) 242H 10/26/16 17:11: Bedside Glucose (Misc Panel) 140H 10/26/16 20:36: Bedside Glucose (Misc Panel) 156H 10/27/16 05:51: Anion Gap 6L, Anisocytosis 2+, White Blood Count 6.1, Red Blood Count 3.07L, Hemoglobin 8.8L, Hematocrit 30.1L, Mean Corpuscular Volume 98.0H, Mean Corpuscular Hemoglobin 28.6, Mean Corpuscular Hemoglobin Concent 29.2L, Red Cell Distribution Width 19.2H, Platelet Count 279, Neutrophils (%) (Auto) 58.6, Lymphocytes (%) (Auto) 22.5L, Monocytes (%) (Auto) 7.8H, Eosinophils (%) (Auto) 8.5H, Basophils (%) (Auto) 0.4, Neutrophils # (Auto) 3.6, Lymphocytes # (Auto) 1.4L, Monocytes # (Auto) 0.5, Eosinophils # (Auto) 0.5, Basophils # (Auto) 0.0, Blood Urea Nitrogen 28H, Creatinine 1.09, Sodium Level 141, Potassium Level 4.6# , Chloride Level 103, Carbon Dioxide Level 32, Calcium Level 8.7L, Glomerular Filtration Rate > 60.0, Hypochromasia 3+, Large Unclassified Cells # 0.1, Large Unclassified Cells % 2.2, Macrocytosis 1+, Platelet Estimate NORMAL, Prothromb Time International Ratio 1.89, Prothrombin Time 21.8H CBC/BMP Laboratory Tests 10/26/16 17:46 10/27/16 00:14 10/27/16 05:51 Calcium Level 8.7 L, Red Blood Count 3.07 L, Mean Corpuscular Volume 98.0 H, Mean Corpuscular Hemoglobin 28.6, Mean Corpuscular Hemoglobin Concent 29.2 L, Red Cell Distribution Width 19.2 H, Neutrophils (%) (Auto) 58.6, Lymphocytes (% ) (Auto) 22.5 L, Monocytes (%) (Auto) 7.8 H, Eosinophils (%) (Auto) 8.5 H, Basophils (%) (Auto) 0.4, Neutrophils # (Auto) 3.6, Lymphocytes # (Auto) 1.4 L, Monocytes # (Auto) 0.5, Eosinophils # (Auto) 0.5, Basophils # (Auto) 0.0 Microbiology Microbiology 10/26/16 Stool Occult Blood ([facility]) - Final, Complete 10/25/16 MRSA Screen, Resulted Pending 10/25/16 Influenza Virus Type A Antigen - Final, Resulted 10/25/16 Influenza Virus Type B Antigen - Final, Resulted 10/25/16 Respiratory Virus Panel (PCR) ([facility]) - Final, Resulted 10/26/16 Urine Culture - Final, Complete JENNIFFER DE LA CRUZ DO Oct 27, 2016 08:12 ANDREI MAK DO Oct 29, 2016 16:09
[2016-10-27 14:00] VITALS: BP 131/65
[2016-10-27] MEDS ORDERED: MIRALAX *UNIT DOSE* 17GM PACKET PO ONE (14:45)
[2016-10-27] MEDS: ATORVASTATIN 20 MG TAB PO SCH (20:11)
[2016-10-27] MEDS: SPIRONOLACTONE 25 MG TAB PO SCH (20:11)
[2016-10-27 22:00] VITALS: BP 147/69
--- NOTE | 2016-10-28 05:50 | CR ---
DATE OF CONSULTATION: 10/27/2016 REASON FOR CONSULTATION: Metallic appearing foreign body of cecum. HISTORY OF THE PRESENT ILLNESS: The patient is a pleasant, 75-year-old man who was admitted on 10/25/2016 for evaluation of anemia. The patient was apparently seen recently with findings of anemia. He apparently developed some feelings of fatigue and reported having fallen several times in the last few weeks. He was seen by his physician on 10/25/2016 and referred to the emergency department for further evaluation. In the emergency department, he was found to have a hemoglobin of 9.1. Since admission, he has undergone stool guaiac testing, which was negative. His hemoglobin and hematocrit have remained stable. His iron was found to be in the normal range as was the total iron-binding capacity (TIBC) . Ferritin was also within the normal range. Vitamin B12 and folate were also normal. The patient denies any history of gastrointestinal bleeding. He underwent evaluation with a CT scan of the abdomen and pelvis, which revealed a metallic appearing foreign body in the cecum. He was noted to have some surgical clips in the left inguinal area. He appeared to have some calcified material within the gallbladder. The foreign body appeared to represent a disk shaped metallic object. We also had a small umbilical hernia noted. Because of the foreign body, I was asked to evaluate the patient from a general surgical standpoint. MEDICAL HISTORY: Patient has a history of hypertension and he has dyslipidemia. He has a history of coronary artery disease and has undergone bypass. He has had atrial fibrillation. He has chronic obstructive pulmonary disease. He has a history of peripheral vascular disease. He has gout. He apparently has a diagnosis of ischemic cardiomyopathy and has an implanted defibrillator. Surgical history is significant for bilateral cataract removal. He has had a carotid endarterectomy. He has had a femoral-popliteal bypass. He has had a four-vessel coronary artery bypass grafting. He has had his implanted defibrillator placed in October of 2009. He has undergone tonsillectomy. Family history is noncontributory. SOCIAL HISTORY: Patient is a former smoker. He is also a former drinker. REVIEW OF SYSTEMS: Reveals no history of apparent rectal bleeding. He denies any abdominal pain. He has been eating well. He has had some recent weakness and falling episodes. He denies a history of stroke or seizure. He has had no recent chest pain or palpitations. Remainder of the review of systems is unremarkable. PHYSICAL EXAMINATION: Reveals an obese man lying quietly on the hospital bed. He is alert and oriented. His weight is recorded as 111 kg. He is on his most recent vital signs afebrile with a temperature of 97.5, with a pulse in the 60s and blood pressure most recently of 147/69. The patient is alert and oriented. Sclerae are anicteric. Neck is supple. Heart exam shows a regular rhythm. Lungs are clear but his breath sounds are quite distant. The abdomen is quite protuberant with a small definite protruding umbilical hernia about 2.5 cm in diameter. This is soft and nontender. The abdomen is soft and without palpable mass or tenderness. Extremities show no significant peripheral edema. Most recent laboratory studies from 10/27/2016 show a hemoglobin of 8.4 and a hematocrit of 28.3. Most recent platelet count was on 10/27/2016 showing 279,000 platelets. Chemistries show that he has good renal function with a BUN of 28 and a creatinine of 1.09. His blood sugar was 133 in the morning of 10/27/2016. His CT scan from 10/25/2016 and his abdominal x-rays from 10/26/2016 and 10/27/2016 are reviewed. There does appear to be a metallic foreign body in the right lower quadrant and on the CT scan this appears to be within the tip of the cecum roughly at the area of appendiceal orifice. He has other abnormalities including atherosclerosis and his hernia noted on his scan. IMPRESSION: 1. Metallic foreign body of the cecum, probably of no clinical significance whatever. 2. Anemia of uncertain cause. 3. Ischemic cardiomyopathy. 4. Atherosclerotic coronary artery disease status post bypass. 5. Paroxysmal atrial fibrillation. 6. Status post placement of implanted cardioverter defibrillator. 7. Hypertension. 8. Dyslipidemia. 9. Diabetes mellitus type 2. 10. Chronic obstructive pulmonary disease. 11. Atherosclerotic peripheral vascular disease. RECOMMENDATIONS: At this point, the foreign body would seem to be asymptomatic and unrelated to the cause of his admission. When questioned about the possible ingestion of a foreign body, he recalls that he may have swallowed a coin when he was a child but I note that on review of other parts of his medical record that in July of [address] scan of the abdomen and pelvis which showed no evidence of foreign body at that time, so certainly it has entered his system since 2010. It does have the appearance of a coin, but it would be unusual for this to be ingested and not pass within some reasonable period of time. I considered the possibility that this could represent some sort of mineral or iron tablet, but I doubt that it would remain as intact as it appears to be. The bottom line is that this does not seem to be causing him any trouble and would not seem to be related to the cause of his anemia and falls, and so I would not recommend any further evaluation or treatment.
[2016-10-28 06:00] VITALS: BP 137/62
[2016-10-28 06:19] LABS: ADD MORPHOLOGY? YES; BASO % 0.7 % (0.0-1.0); EOS # 0.6 K/mm3 (0.0-0.50); EOS % 9.1 % (0.0-3.0); LARGE UNSTAINED CELL # 0.1 K/mm3 (0.0-0.4); LARGE UNSTAINED CELL % 1.8 % (0.0-4.0); LYMPH # 1.8 K/mm3 (1.5-4.5); LYMPH % 23.6 % (24.0-44.0); MEAN CORPUSCULAR HEMOGLOBIN 28.4 pg (27.0-33.0); MEAN CORPUSCULAR HGB CONC 29.2 g/dl (32.0-36.5); MEAN CORPUSCULAR VOLUME 97.2 fl (80.0-96.0); MONO # 0.5 K/mm3 (0.0-0.8); MONO % 7.3 % (0.0-5.0); NEUTROPHILS % 57.5 % (36.0-66.0); PLATELET COUNT, AUTOMATED 280 k/mm3 (150-450); RED CELL DISTRIBUTION WIDTH 18.7 % (11.5-14.5)
[2016-10-28 06:22] LABS: INR 1.46
[2016-10-28 06:28] LABS: CALCIUM LEVEL 8.6 MG/DL (8.8-10.2); CREATININE FOR GFR 1.28 MG/DL (0.70-1.30); GLOMERULAR FILTRATION RATE 58.6 (>42)
[2016-10-28 06:29] LABS: POTASSIUM SERUM 5.2 MEQ/L (3.5-5.1)
[2016-10-28 06:40] LABS: ANISOCYTOSIS 2+; HYPOCHROMASIA 1+
[2016-10-28 06:42] LABS: POLYCHROMASIA 1+
[2016-10-28 08:00] VITALS: BP_SYST 161; BP_SYST 162; BP_SYST 166; BP_DIAS 72; BP_DIAS 78; BP_DIAS 79
[2016-10-28 09:00] VITALS: BP 166/79
[2016-10-28] MEDS: HumaLOG INSULIN (NovoLOG) PER UNIT SC SCH (09:00)
[2016-10-28] MEDS: CARVedilol 6.25 MG TAB PO SCH (09:00)
[2016-10-28] MEDS: DIVALPROEX 500 MG TAB PO SCH (09:01)
[2016-10-28] MEDS: GABAPENTIN 300 MG CAP PO SCH (09:01)
[2016-10-28] MEDS: BENZONATATE 100 MG CAP PO SCH (09:01)
[2016-10-28] MEDS: SUCRALFATE 1 GM TAB PO SCH (09:01)
[2016-10-28] MEDS: PANTOPRAZOLE 40MG INJ (PROTONIX) (C9113) IV SCH (09:01)
[2016-10-28] MEDS: PARoxetine 20 MG TAB PO SCH (09:01)
[2016-10-28] MEDS: TORSEMIDE 20 MG TAB PO SCH (09:02)
[2016-10-28] MEDS: ALLOPURINOL 300 MG TAB PO SCH (09:02)
[2016-10-28] MEDS: ANEXSIA, NORCO 7.5MG/325MG TABLET(HYDROCODONE/APAP) PO PRN (09:03)
--- NOTE | 2016-10-28 10:00 | DS.PDOC ---
Discharge Summary General Date of Admission Oct 25, 2016 at 14:47 Date of Discharge Oct 28, 2016 Primary Care Physician: RONIT ZULETA DO Discharge Summary DISCHARGE DIAGNOSES: 1. Anemia of unknown etiology 2. Foreign coin-shaped metallic object in cecum 3. Atherosclerotic coronary artery disease status post bypass. 4. Paroxysmal atrial fibrillation. 5. Status post placement of implanted cardioverter defibrillator. 6. Hypertension. 7. Dyslipidemia. 8. Diabetes mellitus type 2. 9. Chronic obstructive pulmonary disease. 10. Atherosclerotic peripheral vascular disease. HISTORY OF PRESENT ILLNESS & HOSPITAL COURSE: Patient was admitted due to his PCP, Dr. Parikh's concern regarding anemia on his most recent labs. Apparently he had a drop in hemoglobin from 12.2 on 09/14/2016 28.4 on 2016, and he had been feeling significantly more fatigued, and he has fallen a few times in the past few weeks, he had a doctor's visit on 10/25 where he discussed his lab results, and at that time he was sent in for further evaluation. His hemoglobin in the ED upon admission was 9.1, therefore it appeared that his bleeding had stabilized at that time. The patient complained of increased fatigue upon admission with no additional acute complaints, he mentioned he had a chronic non-productive cough that was unchanged and stated that he takes iron supplements, therefore his stools are chronically black and tarry. He denied seeing bright red blood in his stool. The patient also mentioned that he is unsteady on his feet and falls, he had fallen twice in the past week and his his head one of those times, he mentioned that he feels a pain go up the back of his legs into his back followed by weakness in his legs resulting in a fall. The patient had a positive fecal occult blood test and so his stools were monitored along with his H/H, vitamin B12, folate and LFTs. He was started on Protonix IV twice a day and Carafate, and since he denied any abdominal pain and was tolerating an oral intake, was allowed to have a normal diet. His Coumadin was held upon admission. His vitamin B12 and folate both came back normal. His nasopharynx panel came back negative on 10/25 along with a negative Influenza A/B screen and MRSA screen. His urine culture on 10/26 came back with no growth of clinical significance and his FOBT came back negative on 10/27. A peripheral smear done on 10/26 revealed worsening of anemia with elevated reticulocytes consistent with occult blood loss. The patients CBC and CMP remained relatively the same throughout his stay with a low RBC, HgB and Hct. A head CT was done on 10/25 due to his history of falls and hitting his head and came back positive for diffuse atrophy and vascular calcification with no acute intracranial abnormality. A CT of his abdomen/pelvis on 10/26 came back positive for tiny gravel like calculi in his gallbladder neck, an infrarenal AAA of 3.4cm, metallic density in the tip of the cecum measuring 2.1cm not visible in CT images from 2010, small umbilical hernia transmitting abdominal fat, vascular calcification and left colonic diverticulosis. On 10/26 the patient was given Lispro, D50w IV, glucose and glucagon as per the hypoglycemia protocol. He was given Magnesium Citrate on 10/26 and 10/27 in an effort to clean his bowels and move the metallic object out of his system. A abdomen x-ray on 10/26 and 10/27 revealed that the object had not moved from its place in the tip of the cecum in the RLQ and had not increased in size. A surgical consult was put in on 10/[address] Giang saw the patient on 10/27 and noted that since the metallic object wasn't causing the patient any trouble and didn't seem to be the cause of the anemia or the falls, he didn't recommend any further evaluation or treatment. The patient was pleasant and asymptomatic during his stay and had no complaints. His H/H remained stable throughout. He appears stable for discharge at this time. PHYSICAL EXAMINATION ON DISCHARGE: VITAL SIGNS: Please see below. GENERAL: Patient is of pleasant disposition and is alert and oriented x3. HEENT: Mucous membranes pink and moist, pharynx normal, denies dysphagia NECK: Supple, no JVD or distention CARDIOVASCULAR EXAMINATION: Distant heart sounds, regular rhythm, normal S1 and S2, no tachycardia or arrhythmias RESPIRATORY EXAMINATION: Wheezing heard bilaterally throughout the upper lobes of both lungs, no rhonchi or rales, patient had SOB yesterday after walking around the hallway; he mentions he is not used to walking long distances, the SOB dissipated after he rested for a while ABDOMINAL EXAMINATION: Abdomen is soft and non-tender, no pain upon palpation, normal bowel sounds EXTREMITIES: No edema present, pulses intact SKIN: No rashes or lesions, skin is warm, with normal turgor NEUROLOGICAL EXAMINATION: Normal muscle tone, no weakness PSYCHIATRIC EXAMINATION: Mood is normal, pleasant ACTIVITY: As tolerated. DIET: No added Salt. DISPOSITION: Home DISCHARGE INSTRUCTIONS: 1. Follow up with PCP Dr. Zuleta within 7-10 days 2. Patient may resume his previous dose of Coumadin 3. If symptoms return, or you notice any signs of bleeding please call your Doctor immediately or go to the emergency department. ITEMS TO FOLLOWUP ON ON OUTPATIENT: 1. Round metallic object noted in the cecum, this does not appear to be of any clinical significance at this time. 2. Outpatient follow-up regarding anemia Vital Signs/I&Os Vital Signs Date Time Temp Pulse Resp B/P Pulse Ox O2 Delivery O2 Flow Rate FiO2 10/28/16 06:00 98.3 73 20 137/62 91 Nasal Cannula 2.0 I&O- Last 24 Hours up to 6 AM 10/28/16 06:00 Intake Total 3870 ml Output Total 700 ml Balance 3170 ml Laboratory Data Labs 24H Laboratory Tests 2 10/27/16 11:39: Bedside Glucose (Misc Panel) 206H 10/27/16 16:35: Bedside Glucose (Misc Panel) 126H 10/27/16 21:10: Bedside Glucose (Misc Panel) 108 10/28/16 05:56: Anion Gap 6L, Anisocytosis 2+, Basophilic Stippling 1+, White Blood Count 7.0, Red Blood Count 2.92L, Hemoglobin 8.3L, Hematocrit 28.4L, Mean Corpuscular Volume 97.2H, Mean Corpuscular Hemoglobin 28.4, Mean Corpuscular Hemoglobin Concent 29.2L, Red Cell Distribution Width 18.7H, Platelet Count 280, Neutrophils (%) (Auto) 57.5, Lymphocytes (%) (Auto) 23.6L, Monocytes (%) (Auto) 7.3H, Eosinophils (%) (Auto) 9.1H, Basophils (%) (Auto) 0.7, Neutrophils # (Auto ) 4.0, Lymphocytes # (Auto) 1.8, Monocytes # (Auto) 0.5, Eosinophils # (Auto) 0.6H, Basophils # (Auto) 0.0, Blood Urea Nitrogen 32H, Creatinine 1.28, Sodium Level 138, Potassium Level 5.2H, Chloride Level 101, Carbon Dioxide Level 31, Calcium Level 8.6L, Glomerular Filtration Rate 58.6, Hypochromasia 1+, Large Unclassified Cells # 0.1, Large Unclassified Cells % 1.8, Platelet Estimate NORMAL, Polychromasia 1+, Prothromb Time International Ratio 1.46, Prothrombin Time 17.8H CBC/BMP Laboratory Tests 10/27/16 12:03 10/27/16 18:28 10/28/16 00:03 10/28/16 05:56 Calcium Level 8.6 L, Red Blood Count 2.92 L, Mean Corpuscular Volume 97.2 H, Mean Corpuscular Hemoglobin 28.4, Mean Corpuscular Hemoglobin Concent 29.2 L, Red Cell Distribution Width 18.7 H, Neutrophils (%) (Auto) 57.5, Lymphocytes (% ) (Auto) 23.6 L, Monocytes (%) (Auto) 7.3 H, Eosinophils (%) (Auto) 9.1 H, Basophils (%) (Auto) 0.7, Neutrophils # (Auto) 4.0, Lymphocytes # (Auto) 1.8, Monocytes # (Auto) 0.5, Eosinophils # (Auto) 0.6 H, Basophils # (Auto) 0.0 FSBS Laboratory Tests Test 10/27/16 11:39 10/27/16 16:35 10/27/16 21:10 Range/Units Bedside Glucose (Misc Panel) 206 126 108 83-110 MG/DL Microbiology Microbiology 10/26/16 Stool Occult Blood (ISAAC) - Final, Complete 10/25/16 MRSA Screen - Final, Complete 10/25/16 Influenza Virus Type A Antigen - Final, Complete 10/25/16 Influenza Virus Type B Antigen - Final, Complete 10/25/16 Respiratory Virus Panel (PCR) (ISAAC) - Final, Complete 10/26/16 Urine Culture - Final, Complete Discharge Medications Scheduled Allopurinol (Zyloprim) 300 Mg Tab 300 MG PO DAILY (Reported) Ascorbic Acid (Vitamin C) 500 Mg Tab 500 MG PO DAILY (Reported) Atorvastatin Calcium (Lipitor) 20 Mg Tab 20 MG PO QHS (Reported) Benzonatate (Benzonatate) 100 Mg Cap 100 MG PO BID (Reported) Carvedilol (Carvedilol) 6.25 Mg Tab 6.25 MG PO BID (Reported) Divalproex Sodium (Divalproex Sodium Dr) 500 Mg Tab 500 MG PO BID (Reported) Esomeprazole Magnesium Trihydr (Nexium) 40 Mg Cap 40 MG PO DAILY (Reported) Ferrous Sulfate (Ferrous Sulfate) 27 Mg Tab 54 MG PO DAILY (Reported) Gabapentin (Gabapentin) 300 Mg Cap 900 MG PO BID (Reported) Insulin Aspart Protamine/Aspar (Novolog Mix 70/30 (70-30) 100 Unit/ml) 1 Units/ 0.01 Ml Susp 42 UNITS SC BID (Reported) Metformin Hydrochloride (Metformin HCl ER) 500 Mg Tab 1,000 MG PO BID (Reported ) Paroxetine (Paroxetine HCl) 40 Mg Tab 40 MG PO DAILY (Reported) Sacubitril/Valsartan (Entresto 49-51 mg) 1 Tab Tab 1 TAB PO BID (Reported) Spironolactone (Spironolactone) 25 Mg Tab 25 MG PO QHS (Reported) Torsemide (Torsemide) 20 Mg Tab 40 MG PO DAILY (Reported) Warfarin Sod (Warfarin Sodium) 5 Mg Tab 5 MG PO 3XW (Reported) QPM: MON, WED, FRI Warfarin Sod (Warfarin Sodium) 10 Mg Tab 10 MG PO 4XWK (Reported) QPM: SUN, TUES, THURS, SAT Scheduled PRN Acetaminophen/Hydrocodone (Hydrocodone/Acetaminophen 7.5-325 mg) 1 Tab Tab 1 TAB PO QID PRN PRN PAIN (Reported) Nitroglycerin (Nitrostat) 0.4 Mg Subl 0.4 MG SL PRN PRN PRN CHEST PAIN (Reported ) Allergies Coded Allergies: No Known Allergies (Verified Allergy, 08/31/11) GME ATTESTATION GME ATTESTATION My preceptor for this patient encounter was physically present in the building during the encounter and was fully available. As needed, all aspects of the patient interview, examination, medical decision making process, and medical care plan development were reviewed and approved by the preceptor. Preceptor is aware and concurs with the plan as stated in the body of this note and will attest to such by his/her cosignature. ATTENDING NOTE Attending note: patient seen independently and discussed the case in depth with the resident. I agree with the treatment plan as outlined above. JENNIFFER DE LA CRUZ DO Oct 28, 2016 08:16 ANDREI MAK DO Oct 29, 2016 16:12
== END 2016-10-28 10:58 | disposition home or self-care (01) | DRG 812 ==
LOC: M ED 12:08 → M ED INP 14:47 → M ICU 21:50 → M MSPAV 10-26 12:47
PROVIDERS: ADMIT General Practice; ATTEND Hospitalist
DX: D64.9 Anemia, unspecified (principal); E78.5 Hyperlipidemia, unspecified; I10 Essential (primary) hypertension; E11.51 Type 2 diabetes mellitus with diabetic peripheral angiopathy without gangrene; J44.9 Chronic obstructive pulmonary disease, unspecified; I25.5 Ischemic cardiomyopathy; I48.2 Chronic atrial fibrillation; T18.4XXA Foreign body in colon, initial encounter; K57.30 Diverticulosis of large intestine without perforation or abscess without bleeding; R26.81 Unsteadiness on feet; M10.9 Gout, unspecified; I71.4 Abdominal aortic aneurysm, without rupture; R29.6 Repeated falls; Z95.1 Presence of aortocoronary bypass graft; Z95.810 Presence of automatic (implantable) cardiac defibrillator; Z98.62 Peripheral vascular angioplasty status; Z87.891 Personal history of nicotine dependence; Z79.4 Long term (current) use of insulin; Z79.01 Long term (current) use of anticoagulants; Z79.899 Other long term (current) drug therapy; Z79.84 Long term (current) use of oral hypoglycemic drugs

== ENCOUNTER → 2016-12-27 | Outpatient (CLI) | payer MEDICARE, OTHER, MEDICAID ==
[~2016-12-27] MED LIST changes: +BENZ100C5 PO; +CARV6.25 PO; +DIVA500T3 PO; +FERR83TA2 PO; +GABA-282 PO; +HYDR-3716 PO; +METF-414 PO; +NEXI40CA PO; +NITR4TASL SL; +PARO40TA2 PO; +VITA500T88 PO; +WARF-22 PO; +WARF-23 PO; +ZYLO300T4 PO
--- NOTE | 2016-12-27 16:17 | REP ---
CT Head without contrast HISTORY: Head injury COMPARISON: 10/25/2016 Areas of decreased attenuation are present in the periventricular and subcortical white matter. This represents small-vessel ischemic disease. There is no intraparenchymal hemorrhage, acute infarct, mass or midline shift. The ventricular system and cortical sulci are dilated consistent with mild volume loss. There is no extra cerebral collection. There is no fracture. The visualized sinuses are clear. IMPRESSION: 1. Small vessel ischemic disease. 2. Mild volume loss. Signed by Bo Castro MD 12/27/2016 04:08 P
== END ==
LOC: M RAD 15:49
PROVIDERS: ATTEND Internal Medicine Cardiovascular Disease
DX: S09.90XA Unspecified injury of head, initial encounter (principal); Y92.89 Other specified places as the place of occurrence of the external cause; X58.XXXA Exposure to other specified factors, initial encounter; Y93.89 Activity, other specified; Y99.8 Other external cause status; I67.9 Cerebrovascular disease, unspecified

== ENCOUNTER → 2017-01-14 | Outpatient (REF) | payer MEDICARE, OTHER, MEDICAID ==
[~2017-01-14] MED LIST changes: -METF500T PO; +METF500T13 PO
== END ==
LOC: M LAB REF 16:38
PROVIDERS: ATTEND Family Medicine
DX: R19.7 Diarrhea, unspecified (principal)

== ENCOUNTER → 2017-03-01 | Outpatient (CLI) | payer MEDICARE, OTHER, MEDICAID ==
--- NOTE | 2017-03-01 18:10 | REP ---
Chest x-ray: Two views. History: Respiratory failure. Comparison study October 26, 2016. Findings: Moderate cardiomegaly is observed, unchanged. A multi lead pacemaker is seen in the right heart via the left side as before. Prior sternotomy sutures are visible. There is some fissural thickening visible particularly on the lateral film. Interstitial markings are increased diffusely most pronounced in the bases. Oxygen delivery tubing is seen. There are clips in the soft tissues of the left neck. Impression: Cardiomegaly with pacemaker. Increased interstitial markings in the bases, question mild interstitial edema. No effusion seen. Signed by Mervin Valero MD 03/02/2017 07:58 A
[2017-03-01 19:45] LABS: CALCIUM LEVEL 9.1 MG/DL (8.8-10.2); CREATININE FOR GFR 1.26 MG/DL (0.70-1.30); FREE T4 1.25 NG/DL (0.76-1.46); GLOMERULAR FILTRATION RATE 59.6 (>42); POTASSIUM SERUM 5.1 MEQ/L (3.5-5.1)
[2017-03-01 21:38] LABS: BASO # 0.1 K/mm3 (0.0-0.2); BASO % 0.9 % (0.0-1.0); EOS # 0.2 K/mm3 (0.0-0.50); EOS % 3.3 % (0.0-3.0); LARGE UNSTAINED CELL # 0.1 K/mm3 (0.0-0.4); LARGE UNSTAINED CELL % 1.7 % (0.0-4.0); LYMPH # 1.6 K/mm3 (1.5-4.5); LYMPH % 21.4 % (24.0-44.0); MEAN CORPUSCULAR HEMOGLOBIN 30.5 pg (27.0-33.0); MEAN CORPUSCULAR HGB CONC 31.4 g/dl (32.0-36.5); MEAN CORPUSCULAR VOLUME 97.3 fl (80.0-96.0); MONO # 0.7 K/mm3 (0.0-0.8); MONO % 9.2 % (0.0-5.0); NEUTROPHILS # 4.7 K/mm3 (1.8-7.7); NEUTROPHILS % 63.5 % (36.0-66.0); PLATELET COUNT, AUTOMATED 178 k/mm3 (150-450); RED CELL DISTRIBUTION WIDTH 18.7 % (11.5-14.5); WHITE BLOOD COUNT 7.4 K/mm3 (4.0-10.0)
== END ==
LOC: M SMT 14:29
PROVIDERS: ATTEND Physician Assistant
DX: I50.22 Chronic systolic (congestive) heart failure (principal); J96.10 Chronic respiratory failure, unspecified whether with hypoxia or hypercapnia; I51.7 Cardiomegaly; Z95.0 Presence of cardiac pacemaker

== ENCOUNTER → 2019-02-13 | Outpatient (REF) | payer MEDICARE, OTHER, MEDICAID ==
[~2019-02-13] MED LIST changes: -/WARF5TA PO; +BENZ-18 PO; -BENZ100C5 PO; +COUM1TAB17 PO; -DIVA500T3 PO; +DIVA500T94 PO; -GABA-282 PO; +GABA-843 PO; +HYDR-3715 PO; -NORCOTAB PO; +SPIR-10 PO; -SPIR25TA2 PO; -ZYLO300T4 PO; +ZYLO300T6 PO
== END ==
LOC: M LAB REF 10:48
PROVIDERS: ATTEND Surgery
DX: L72.3 Sebaceous cyst (principal)

== ENCOUNTER → 2019-02-16 | Outpatient (CLI) | payer MEDICARE, OTHER, MEDICAID ==
--- NOTE | 2019-02-16 09:27 | REP ---
Clinical: abdominal aortic aneurysm. Technique: Real time painting scale ultrasound examination using curved array transducer. Findings: Abdominal aorta demonstrates moderate atheromatous plaquing. Distal abdominal aortic aneurysm measures 3.3 x 3.5 cm diameter and approximately 5 cm in craniocaudal length originating roughly 8 cm from the origin of the main renal arteries and terminates above the level of the bifurcations common iliac arteries. Proximal aorta 2.6 x 2.7 cm. Mid aorta (renal artery level) 2.1 x 2.4 cm. Mid aorta 2.4 x 3.0 cm. Distal aorta 3.3 x 3.5 cm. Right common iliac artery 1.3 cm maximal diameter. Left common iliac artery 1.2 cm maximal diameter. Impression: Infrarenal abdominal aortic aneurysm measuring 3.5 cm maximal diameter. Scattered atherosclerotic changes. Electronically Signed by Alfredo Kong MD 02/16/2019 09:18 A
== END ==
LOC: M RAD 08:24
PROVIDERS: ATTEND Internal Medicine Cardiovascular Disease
DX: I71.4 Abdominal aortic aneurysm, without rupture (principal); I70.0 Atherosclerosis of aorta

== ENCOUNTER → 2020-01-31 | Outpatient (REF) | payer MEDICARE, OTHER, MEDICAID | LOC: M LAB REF 17:33 | PROVIDERS: ATTEND Physician Assistant Medical | DX: Z11.59 Encounter for screening for other viral diseases (principal); Z20.828 Contact with and (suspected) exposure to other viral communicable diseases ==